=== PATIENT | female | born 1955 | race Caucasian/White ===

== ENCOUNTER → 2023-09-11 07:48 | Outpatient (REF) | payer MEDICARE, OTHER, SELFPAY ==
[2023-09-11 10:23] LABS: ALT (SGPT) 39 U/L (0-35); AST (SGOT) 37 U/L (14-36); Albumin 4.1 g/dl (3.5-5.0); Alkaline Phosphatase 122 U/L (38-126); Blood Urea Nitrogen 24 mg/dl (7-17); Calcium 9.7 mg/dl (8.4-10.2); Carbon Dioxide 27 mmol/L (22-30); Chloride 104 mmol/L (98-107); Glucose 90 mg/dl (70-99); HDL Cholesterol 94 mg/dl; LDL Cholesterol, Calculated 95 mg/dl; Potassium 4.2 mmol/L (3.5-5.1); Sodium 135 mmol/L (135-145); Total Bilirubin 1.2 mg/dl (0.2-1.3); Total Cholesterol 198 mg/dl (50-199); Total Protein 6.8 g/dl (6.3-8.2); Triglyceride 49 mg/dl (10-149); Very Low Density Lipoprotein 9 mg/dl (0-30); eGFR > 60.00
== END ==
LOC: REG 07:48
PROVIDERS: ATTENDING PHYSICIAN Internal Medicine Cardiovascular Disease; FAMILY PHYSICIAN Family Medicine
DX: R94.5 Abnormal results of liver function studies (principal); Z79.899 Other long term (current) drug therapy
CPT/HCPCS: 36415; 80053; 80061

== ENCOUNTER → 2023-10-16 17:14 | Outpatient (REF) | payer OTHER, SELFPAY | LOC: RAD 17:14 | PROVIDERS: ATTENDING PHYSICIAN Nurse Practitioner Family | DX: M79.643 Pain in unspecified hand (principal) | CPT/HCPCS: 73140 ==

== ENCOUNTER 2023-12-16 06:18 | Day surgery (SDC) | payer OTHER, SELFPAY ==
[2023-12-16 11:44] VITALS: BMI 35.8
[2023-12-16 11:45] VITALS: BP 194/103; BMI 35.8
[2023-12-16] MEDS: TYLENOL 1000 MG PO (11:58)
[2023-12-16 14:35] VITALS: BP 183/99
== END 2023-12-16 14:59 | disposition home or self-care (01) ==
LOC: SDS 06:18
PROVIDERS: ATTENDING PHYSICIAN Orthopaedic Surgery
DX: M65.311 Trigger thumb, right thumb (principal)
CPT/HCPCS: 26055

== ENCOUNTER → 2025-03-25 10:55 | Outpatient (REF) | payer OTHER, SELFPAY | LOC: OHS 10:55 | PROVIDERS: ATTENDING PHYSICIAN Nurse Practitioner Family | DX: Z23 Encounter for immunization (principal) | CPT/HCPCS: 36415; 86480; 86787 ==

== ENCOUNTER 2025-04-16 21:31 | Emergency (ER) | payer SELFPAY ==
[2025-04-16 21:34] VITALS: BP 162/97
--- NOTE | 2025-04-17 00:21 | ED.MUSCINJ ---
HPI-Injury
General
Chief Complaint: Fall
Source: patient
Exam Limitations: none
Time Seen by Provider: 04/17/25 00:11
Nursing documentation reviewed up to this point in time: agreed with
History of Present Illness-Injury
Initial Injury comments:
Note:
CHIEF COMPLAINT(S)
Right knee pain and swelling after a fall.
HISTORY OF PRESENT ILLNESS
The patient is a 69-year-old female who presented with right knee pain and swelling following a fall. The fall occurred when the patient was getting ready to sit down, and her heel unintentionally touched an object, leading to a loss of balance. The
patient reports attempting to prevent the fall but was ultimately unsuccessful. She described the pain as located on the medial aspect of the right knee, with no reported pain on the lateral side. The patient denies taking any medication for the
pain and has noted increased swelling in the right knee over time. She mentioned that walking has become progressively more difficult as the day has progressed. The patients balance issues and 'not the greatest knees' were contributory factors in
the incident.
PHYSICAL EXAM
General: Alert, no acute distress.
Skin: Warm, dry.
Head: Normocephalic, atraumatic.
Neck: Supple, trachea midline.
Eye Ears, nose, mouth and throat: Oral mucosa moist.
Cardiovascular: Normal peripheral perfusion, No edema.
Respiratory: Respirations are non-labored.
Gastrointestinal : Abdomen nondistended
Back: Normal range of motion, Normal alignment.
Musculoskeletal: Exam of the right knee reveals swelling, tenderness on the medial aspect, no lateral pain reported.
Neurological: Alert and oriented to person, place, time, and situation, No focal neurological deficit observed.
Psychiatric: Cooperative, appropriate mood & affect.
PLAN
The patient will be provided with a knee immobilizer to stabilize the right knee. Crutches were discussed, but the patient expressed difficulty using them, so she will use a cane she already owns. Tylenol will be given to manage pain. Follow-up will
be arranged with an orthopedic provider as per patients preference after consultation with staff ('girls upstairs').
DIFFERENTIAL DIAGNOSIS
The Differential Diagnosis includes, in no particular order and is not limited to:
1. Knee contusion
2. Ligament strain or sprain
3. Meniscal injury
4. Patellar dislocation
5. Fracture (tibial plateau, patella)
6. Osteoarthritis exacerbation
7. Hemarthrosis
8. Tendon injury
9. Soft tissue swelling
10. Joint effusion
Disposition:
SUMMARY OF ENCOUNTER
The 69-year-old female presented to the emergency department with right knee pain following an incident where she attempted to sit on a rolling chair, which resulted in a fall. She landed on her back without hitting her head or losing consciousness
but reported right knee pain, particularly in the medial aspect. An x-ray was performed and showed no obvious osteosate abnormality. Management included providing a knee immobilizer to stabilize her knee and advising a follow-up with an orthopedic
surgeon.
DISPOSITION
Discharge
PLAN
The patient is to receive a knee immobilizer and follow up with an orthopedic surgeon for further evaluation and management of her knee pain.
INDEPENDENT REVIEW OF LABS AND INTERPRETATION OF TESTS
My independent interpretation of the x-ray shows no obvious osteosate abnormality.
PATIENT EDUCATION AND COUNSELING
The patient was informed about the use of the knee immobilizer and advised to follow up with an orthopedic surgeon for continued care.
FOLLOW-UP INSTRUCTIONS
Follow up with an orthopedic surgeon for continued care.
MEDICAL DECISION MAKING
-Complexity of Data Reviewed: Chronic conditions affecting care include knee pain after the fall. Differential diagnoses considered include knee contusion, ligament strain or sprain, meniscal injury, patellar dislocation, fracture (tibial plateau,
patella), osteoarthritis exacerbation, hemarthrosis, tendon injury, soft tissue swelling, and joint effusion.
-Data:
Category 1: X-ray was performed showing no obvious osteosate abnormality.
Category 3: Discussion of management with healthcare professionals was considered, but ultimately discharge was determined appropriate.
-Risk: Prescription medication was considered in the management. Consideration of Admission/Observation: Escalation of care including admission/observation was considered given the complexity and risk of the patients presenting complaint, exam
findings, and/or their underlying comorbidities. However, ultimately I feel the patient is safe for outpatient management with close follow-up. Reasoning: Work-up reassuring, does not reveal any acute life/organ threatening processes, patients
symptoms well controlled upon reevaluation, reexamination is reassuring, vitals are stable, patient agreeable with discharge, reliable for follow-up.
DIAGNOSIS
1. Right knee pain secondary to fall (ICD-10: M25.561)
2. Suspected ligament strain or meniscus injury (ICD-10: S83.2XXA - Tear of lateral meniscus current injury, initial encounter)
Phy Exam
Physical Exam
Physical Exam:
.
Injury Course
Orders/Labs/Results
Orders:
Orders
04/16/25 21:38
CR Knee - Right 3 Views Urgent
Comment:
Reason For Exam: fall, pain and swelling
04/17/25 00:19
Acetaminophen [Tylenol] 1,000 mg PO NOW STA
04/17/25 00:20
Knee Immobilizer Right-Treatme ONCE
*Radiology
Radiology exam reviewed: all reviewed NAD by ED Provider
*Pulse Oximetry
SaO2: 96
Oxygen Mode of Delivery: Room air
Patient hypoxic: no
*Critical Care Note
Total Time (30-74mins, 75-104mins- exclusive of procedures): Not Applicable
ED Attending Note
-
Portions of this chart may have been created with voice recognition software.� Occasional wrong word or��sound alike� substitutions may have occurred due to the inherent limitations of voice recognition software.
Discharge Plan
Departure
Patient Disposition: Home (Routine Discharge)
Date of Disposition: 04/17/25
Time of Disposition: 00:23
Patient with high blood pressure during this ER visit?: Yes
Condition: Good
Discharge Problem:
Acute knee pain, Fall
Instructions: BLOOD PRESSURE, Knee pain - ED (DC), How to use a knee brace, Preventing falls in adults
Prescriptions:
No Action
metoprolol succinate [Toprol XL] 100 mg Tablet Extended Release 24 Hr
100 mg PO DAILY
indomethacin 50 mg Capsule
50 mg PO BID
olmesartan 20 mg Tablet
20 mg PO DAILY
Referrals:
Stephen Thornton MD [Active, Orthopedics]
Activity Restrictions/Additional Instructions:
Thank You for choosing [facility].
It was a pleasure meeting you and taking part in your care. We hope for your continued healing and wellness.
Please read discharge instructions in their entirety. However, they are for general education and may not describe your exact diagnosis at discharge. Information on your ER visit and medical conditions were discussed with you along with appropriate
follow up information...
If indicated, please take your medications as instructed and indicated on discharge paperwork.
Please schedule a follow up appointment as directed. Call to schedule an appointment
Please return to the emergency department with ANY change in, persisting, or worsening of symptoms. If any of your symptoms do not improve, or persist, or become more severe within 6-12 hours, please return to the emergency department for further
care.
Please return to the emergency department if you develop a headache, neck pain/stiffness, fever greater than 100.4F, chest pain, shortness of breath, persistent nausea, vomiting, slurred speech, difficulty walking, numbness/tingling, weakness, signs
of infection or any other symptoms that are worrisome to you.
If you have any questions or concerns please do not hesitate to call the Hospital at .
Interventions
Interventions:
*Risk Screen - Suicide Last Done: 04/16/25 21:34
*General Assessment Last Done: 04/16/25 21:34
*Neglect/Abuse Screening Last Done: 04/16/25 21:34
Discharge Date and Time
Print Language: [id number]
[2025-04-17] MEDS: TYLENOL 1000 MG PO (00:24)
[2025-04-17 00:42] VITALS: BP 185/103
== END 2025-04-17 00:43 | disposition home or self-care (01) ==
LOC: EMR 21:31
PROVIDERS: EMERGENCY PHYSICIAN Student in an Organized Health Care Education/Training Program; FAMILY PHYSICIAN Nurse Practitioner
DX: M25.561 Pain in right knee (principal); W18.39XA Other fall on same level, initial encounter; R03.0 Elevated blood-pressure reading, without diagnosis of hypertension; Z96.651 Presence of right artificial knee joint
CPT/HCPCS: 99283; 73562